=== PATIENT | male | born 1930 | race Caucasian/White ===

== ENCOUNTER 2017-03-30 19:55 | Emergency (ER) | payer OTHER ==
[~2017-03-30] VITALS: Ht 188 cm; Wt 108.9 kg
--- NOTE | ~2017-03-30 | EKG ---
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 : 1930 Requested By: Gloria Ornelas Order Number: [id number] MD: Asad Schwartz Measurements Intervals [place] Rate: 93 P: OK: QRS: 1 QRSD: 136 T: 21 QT: 407 QTc: 507 Interpretive Statements Atrial fibrillation Ventricular tachycardia, unsustained Nonspecific ST and T wave abnormality No previous ECG available for comparison Electronically Signed On 03-31-2017 9:05:59 CDT by Asad Schwartz [email or web address] <ELECTRONICALLY SIGNED> By: Asad Schwartz MD, [facility] 03/31/17904 57 57 Asad Schwartz MD, FACC /EPI
[2017-03-30 20:33] LABS: ANION GAP 12 mmol/L (7-16); BUN 25 mg/dL (7-18); CHLORIDE 102 mmol/L (98-107); CO2 23 mmol/L (21-32); CREATININE 1.6 mg/dL (0.7-1.3); GLUCOSE 124 mg/dL (74-106); POTASSIUM 4.6 mmol/L (3.5-5.1); SODIUM 137 mmol/L (136-145)
[2017-03-30 20:35] LABS: HEMOGLOBIN 15.2 gm/dL (14.0-18.0); MCHC 33.9 g/dL (28.0-37.0); MCV 97.3 fL (80.0-100.0); PLATELET COUNT 201 thou/uL (150-400); RBC 4.62 mil/uL (4.50-6.00); RDW 13.6 % (10.5-14.5); WBC 9.5 thou/uL (4.0-11.0)
[2017-03-30 20:36] LABS: MANUAL DIFF YES
[2017-03-30 20:41] LABS: TROPONIN-I < 0.04 ng/mL (<0.04-0.07)
[2017-03-30 20:56] LABS: ABSOLUTE NEUTROPHILS 4.4 thou/uL (1.4-8.2); ATYPICAL LYMPHS 4 %; TOTAL CELL COUNT 100
[2017-03-30 20:58] LABS: PLATELET ESTIMATE NORMAL
[2017-03-30 22:27] VITALS: BP 136/70
== END 2017-03-30 22:27 | disposition home or self-care (01) ==
LOC: ER 19:55
PROVIDERS: Emergency Medicine
DX: R07.89 Other chest pain (principal); I48.91 Unspecified atrial fibrillation; I10 Essential (primary) hypertension; Z98.890 Other specified postprocedural states